=== PATIENT | male | born 1960 | race American Indian/Alaskan Native ===

== ENCOUNTER 2023-11-19 12:48 | Inpatient (IN) | payer SELFPAY ==
[2023-11-19] VITALS (7 sets, daily range): BP systolic 93–120; BP diastolic 55–82
[~2023-11-19] VITALS: Ht 175.3 cm; Wt 73.4 kg
[~2023-11-19 12:48] MED LIST: ALBU90OI INH; HYDACE5 PO; HYDGUAL120 PO; IBUP200 PO; PRED10 PO; RXHYDACE PO; SULTRIDS PO
[2023-11-19] MEDS ORDERED: NS 1,000 ML IV SCH ×5 (13:50→17:20)
[2023-11-19 14:01] LABS: Calcium, Ionized (POC) 0.99 mmol/L (1.10-1.46); Chloride (POC) 84 mmol/L (98-108); Creatinine (POC) 2.4 mg/dL (0.8-1.3); Glucose (ISTAT POC) 99 mg/dL (70-99); Hemoglobin (POC) 11.9 g/dL (13.5-17.5); Potassium (POC) 4.7 mmol/L (3.5-5.5); Sodium (POC) 115 mmol/L (135-148); Total CO2 (POC) 19 mmol/L (21-32)
[2023-11-19 14:09] LABS: Hematocrit 35.6 % (37.0-53.0); Hemoglobin 13.2 g/dL (13.5-17.5); Mean Corpuscular HGB 35.8 pg (26.0-34.0); Mean Corpuscular HGB Conc 37.1 g/dL (31.5-36.5); Mean Corpuscular Volume 97 fL (80-100); Mean Platelet Volume 10.4 fL (9.1-12.4); Platelet Count 125 K/mm3 (150-400); RDW Coefficient Variation 12.5 % (11.7-14.2); RDW Standard Deviation 44.3 fL (35.1-46.3); Red Blood Cell Count 3.69 M/mm3 (4.30-5.90); White Blood Cell Count 23.86 K/mm3 (4.00-11.30)
[2023-11-19] MEDS ORDERED: Cefepime HCl 2,000 MG in NS 100 ML IV ONE (14:10)
[2023-11-19 14:19] LABS: Magnesium, Blood 2.9 mg/dL (1.6-2.4)
[2023-11-19 14:28] LABS: BAND PERCENT MAN 8 % (0-8); BASOPHILS PERCENT MAN 0 % (0-2); EOSINOPHILS PERCENT MAN 0 % (0-6); LYMPHOCYTES ABSOLUTE MAN 0.71 K/mm3 (0.84-5.20); LYMPHOCYTES PERCENT MAN 3 % (21-46); METAMYELOCYTE ABSOLUTE MAN 0.23 K/mm3 (0.00-0.00); METAMYELOCYTE PERCENT MAN 1 % (0-0); MONOCYTES ABSOLUTE MAN 1.19 K/mm3 (0.16-1.47); MONOCYTES PERCENT MAN 5 % (4-13); MYELOCYTE ABSOLUTE MAN 0.23 K/mm3 (0.00-0.00); MYELOCYTE PERCENT MAN 1 % (0-0); NEUTROPHILS ABSOLUTE MAN 21.47 K/mm3 (1.96-9.15); SEG NEUTROPHILS PERCENT MAN 82 % (41-73); TOTAL CELLS COUNTED 100
[2023-11-19 14:36] LABS: Albumin, Blood 2.5 g/dL (3.4-5.0); Albumin/Globulin Ratio 0.7 (0.8-1.8); Bilirubin, Total 1.4 mg/dL (0.1-1.0); Bun/Creatinine Ratio 16.4 (12.0-20.0); Calcium, Blood 8.1 mg/dL (8.5-10.1); Creatinine, Blood 2.01 mg/dL (0.60-1.20); Globulin, Blood 3.8 g/dL (2.2-4.0); Potassium, Blood 4.5 mmol/L (3.5-5.5); Total Protein, Blood 6.3 g/dL (6.4-8.2)
[2023-11-19] MEDS ORDERED: Ondansetron HCl 2 MG / ML 2ML Vial IV PRN ×2 (16:05→19:10)
[2023-11-19] MEDS ORDERED: FentaNYL Citrate 50 MCG/ML 2 ML Injection IV PRN ×4 (16:05→19:10)
[2023-11-19] MEDS ORDERED: Vancomycin HCL 1,750 MG in NS 500 ML IV ONE (16:30)
--- NOTE | 2023-11-19 17:06 | NUR ---
PT TO DAY SURGERY FROM ER. PT ACCOMPANIED BY AND FAMILY. [facility] REVIEWED. PLAN OF CARE DISCUSSED WITH PT AND FAMILY, QUESTIONS ANSWERED. PT TO HAVE Amputation Lower Extremity. LEFT FOOT COVERED IN GUAZE.
[2023-11-19] MEDS ORDERED: Phenylephrine HCl 100 MCG/ML-NS 10MLSYR (1MG/10ML) ONE ×2 (17:21→17:43)
[2023-11-19] MEDS ORDERED: Dexamethasone Sod Phos 10 MG/ML 1ML VIAL ONE (17:21)
[2023-11-19] MEDS ORDERED: Ondansetron HCl 2 MG / ML 2ML Vial ONE (17:21)
[2023-11-19] MEDS ORDERED: Vasopressin 20 UNITS/ML 1ML Vial ONE (17:22)
--- NOTE | 2023-11-19 17:25 | NUR ---
PT TO DAY SURGERY FROM THE ER WITH 18G IV TO LEFT AC AND 20G IV TO RIGHT FA.
[2023-11-19] MEDS ORDERED: Etomidate 2MG / ML 10ML Vial ONE (17:26)
[2023-11-19] MEDS ORDERED: FentaNYL Citrate 50 MCG/ML 2 ML Injection ONE (18:21)
[2023-11-19] MEDS ORDERED: Phenylephrine HCl 10mg/ml 1 ml Vial ONE (18:56)
[2023-11-19] MEDS ORDERED: HYDROmorphone HCl/Pf 1MG SYR IV PRN (19:10)
[2023-11-19] MEDS ORDERED: Metoclopramide HCl 5MG / ML 2ML Vial IV PRN (19:10)
[2023-11-19] MEDS ORDERED: Phenylephrine HCl 20 MG in NS 250 ML IV SCH (19:15)
[2023-11-19] MEDS ORDERED: Sugammadex Sodium 200 MG/2ML SDV (100 MG/ML) ONE (19:17)
[2023-11-19 20:31] LABS: Hematocrit 34.1 % (37.0-53.0); Hemoglobin 12.2 g/dL (13.5-17.5); Mean Corpuscular HGB 35.4 pg (26.0-34.0); Mean Corpuscular HGB Conc 35.8 g/dL (31.5-36.5); Mean Corpuscular Volume 99 fL (80-100); Mean Platelet Volume 10.7 fL (9.1-12.4); Platelet Count 100 K/mm3 (150-400); RDW Coefficient Variation 12.7 % (11.7-14.2); RDW Standard Deviation 45.5 fL (35.1-46.3); Red Blood Cell Count 3.45 M/mm3 (4.30-5.90); White Blood Cell Count 22.73 K/mm3 (4.00-11.30)
[2023-11-19 20:48] LABS: Bun/Creatinine Ratio 20.4 (12.0-20.0); Creatinine, Blood 1.62 mg/dL (0.60-1.20); Potassium, Blood 4.7 mmol/L (3.5-5.5)
[2023-11-19] MEDS ORDERED: Nicotine 21 MG PATCH TOP SCH (21:00)
[2023-11-19] MEDS ORDERED: Cefepime HCl 2,000 MG in NS 100 ML IV SCH (21:00)
[2023-11-19] MEDS ORDERED: Lactobacil 2-S.Thermo-Bifido 1 1 Cap PO SCH (21:00)
[2023-11-19 21:02] LABS: BAND PERCENT MAN 6 % (0-8); BASOPHILS PERCENT MAN 0 % (0-2); EOSINOPHILS PERCENT MAN 0 % (0-6); LYMPHOCYTES ABSOLUTE MAN 0.45 K/mm3 (0.84-5.20); LYMPHOCYTES PERCENT MAN 2 % (21-46); MONOCYTES ABSOLUTE MAN 1.36 K/mm3 (0.16-1.47); MONOCYTES PERCENT MAN 6 % (4-13); NEUTROPHILS ABSOLUTE MAN 20.91 K/mm3 (1.96-9.15); SEG NEUTROPHILS PERCENT MAN 86 % (41-73); TOTAL CELLS COUNTED 100
--- NOTE | 2023-11-19 21:38 | NUR ---
RECEIVED PATIENT FROM OR IN MINIMAL DISTRESS. PATIENT SEMIAWAKE, BUT ABLE TO ANSWER SIMPLE QUESTIONS. PATIENT ROLLING SIDE TO SIDE IN BED AND MEDICATED FOR PAIN. REPORT FROM KATY AND INFORMED THAT PATIENT IS A HEAVY SMOKER/DRINKER. PATIENT WITH WOUND VAC TO LT. LOWER LEG WITH MINIMAL DRAINAGE. FAMILY CALLED TO BEDSIDE TO UPDATE.
--- NOTE | 2023-11-19 23:10 | NUR ---
PATIENT COMPLAINING OF PAIN TO SURGICAL LEG. MEDICATED WITH FENTANYL AND AWAITING RESULTS.
[2023-11-20] VITALS (20 sets, daily range): BP systolic 90–128; BP diastolic 55–82
[2023-11-20] MEDS ORDERED: ChlordiazePOXIDE 25 MG Cap PO PRN ×3 (01:05→18:00)
--- NOTE | 2023-11-20 02:11 | NUR ---
PATIENT BECOMING RESTLESS AND VERY DIAPHORETIC, REMAINING ORIENTED AT PRESENT TIME. PATIENT STATES HE JUST CAN'T BE STILL. DR. ZAVALA SPOKEN TO AND NEW ORDERS NOTED. PATIENT MEDICATED WITH 50 MG OF LIBRIUM PO AND PATIENT NOW LESS DIAPHORETIC AND SLEEPING.
[2023-11-20 03:42] LABS: Hematocrit 34.9 % (37.0-53.0); Hemoglobin 12.2 g/dL (13.5-17.5); Mean Corpuscular HGB 35.3 pg (26.0-34.0); Mean Corpuscular Volume 101 fL (80-100); Mean Platelet Volume 10.8 fL (9.1-12.4); Platelet Count 103 K/mm3 (150-400); RDW Standard Deviation 47.9 fL (35.1-46.3); Red Blood Cell Count 3.46 M/mm3 (4.30-5.90); White Blood Cell Count 20.43 K/mm3 (4.00-11.30)
[2023-11-20 04:03] LABS: Albumin/Globulin Ratio 0.6 (0.8-1.8); Bilirubin, Total 1.6 mg/dL (0.1-1.0); Bun/Creatinine Ratio 24.3 (12.0-20.0); Creatinine, Blood 1.44 mg/dL (0.60-1.20); Globulin, Blood 3.5 g/dL (2.2-4.0); Potassium, Blood 5.4 mmol/L (3.5-5.5); Total Protein, Blood 5.5 g/dL (6.4-8.2)
--- NOTE | 2023-11-20 06:05 | NUR ---
PATIENT MUCH MORE RELAXED AFTER LIBRIUM, SLEEPING BUT AROUSABLE. QUESTIONED NULTIPLE TIMES ABOUT NEEDING TO URINATE. PATIENT STATING THAT HE DID NOT NEED TO GO.
--- NOTE | 2023-11-20 09:00 | NUR ---
AM NOTE... ASSUMED CARE OF PT AT 0700, PT IS A&O TO SELF AND FOLLOWING DIRECTIONS, PT HAS SOME SLIGHT CONFUSION AND NONSENSICAL SPEECH. PT WAS ON 5L NC WHICH WAS TITRATED OFF TO RA WITH O2 SATS> 95% L/S SLIGHTLY COARSE. PT IS IN SR IN THE 90'S BP STABLE WITH MAPS>65. 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 SEROSANGUINOUS FLUID NOTED IN THE DRESSING AND IN THE CANSITER/TUBING. PT HAD 1 EPISODE OF URINARY INCONT, THE WHOLE BED WAS SOAKED WITH URINE, BED BATH AND LINEN CHANGE WERE DONE. PT CURRENTLY DENIES PAIN. WILL CONITNUE TO MONITOR.
--- NOTE | 2023-11-20 09:50 | NUR ---
PT UPDATE.... PT WAS STARTING TO HAVE SLIGHTLY INCREASED CONFUSION, PT STATED THAT "MAGGOTS ARE CRAWLING THROUGH THE CRACKS IN THE WINDOWS AND [place]." PT ALSO STATED THAT HE WAS HAVING NUMBNESS TO HIS HANDS AND WAS VERY ANXIOUS FOR "A COFFEE WITH A BEER CHASER." PT'S CIWA SCORE WAS 11. PT MEDICATED PER EMAR. WILL CONTINUE TO MONITOR.
[2023-11-20] MEDS ORDERED: Ketamine HCl 100 MG / ML 5ML Vial ONE (15:15)
[2023-11-20] MEDS ORDERED: FentaNYL Citrate 50 MCG/ML 2 ML Injection ONE (15:15)
[2023-11-20] MEDS ORDERED: propofoL 20 ML IV ONE (15:15)
[2023-11-20] MEDS ORDERED: Rocuronium Bromide 10 MG/ML 5ML Injection IV ONE (15:17)
[2023-11-20] MEDS ORDERED: Phenylephrine HCl 100 MCG/ML-NS 10MLSYR (1MG/10ML) ONE (15:52)
[2023-11-20] MEDS ORDERED: Vancomycin HCl 1000 MG ADDvantage ONE (15:55)
[2023-11-20] MEDS ORDERED: Vancomycin HCL 1,000 MG in NS 250 ML IV SCH (16:00)
[2023-11-20] MEDS ORDERED: Sugammadex Sodium 200 MG/2ML SDV (100 MG/ML) ONE (16:02)
[2023-11-20] MEDS ORDERED: Lidocaine 2% Jelly Uro-Jet UR ONE (17:15)
[2023-11-20 17:44] LABS: Source, Urine Foley catheter
--- NOTE | 2023-11-20 17:53 | NUR ---
SHIFT SUMMARY.... PT RETURNED FROM THE OR AT 1635, PT HAD AN ORAL AIRWAY IN PLACE BUT WOKE TO STERNAL RUB AND LOUD VOICES CALLING HIS NAME. PT'S LLE HAS A DRESSING IN PLACE THAT IS C/D/I THE WOUND VAC IS NO LONGER PRESENT. PT'S VS STABLE. A BLADDER SCAN WAS DONE D/T THE PT NOT VOIDING SINCE EARLY THIS AM. BLADDER SCAN SHOWED 680MLS, PROVIDER WAS NOTIFIED AND AN ORDER FOR CALDERÓN PLACEMENT WAS GIVEN. A 14FR COUDE WAS PLACE WITHOUT ISSUE AND UA WAS SENT TO THE LAB. PT'S CIWA SCORES THIS SHIFT HAVE BEEN 7-11 AND MDEICATED PER EMAR. CALL LIGHT IN REACH WILL CONTINUE TO MONITOR UNTIL REPORT IS GIVEN TO ONCOMING RN.
[2023-11-20] MEDS ORDERED: LORazepam 2 MG/ML 1ML Injection IV PRN ×2 (18:00)
[2023-11-20 18:08] LABS: Appearance, Urine Hazy (Clear); Bilirubin, Urine Neg (Neg); Blood, Urine 2+ (Neg); Color, Urine Yellow (P-Yellow); Glucose Qualitative, Urine Neg (Neg); Ketones, Urine 1+ (Neg); Leukocyte Esterase, Urine Neg (Neg); Nitrite, Urine Neg (Neg); Protein, Urine 1+ (Neg); Urobilinogen, Urine NORM (Normal)
[2023-11-20 18:24] LABS: Bacteria Rare /hpf; Hyaline Casts 0-2 /lpf (0-2); Red Blood Cells, Urine 0-2 /hpf (0-2); Squamous Epithelial Cells Not Seen /hpf (Few); White Blood Cells, Urine 0-2 /hpf (0-5)
[2023-11-20] MEDS ORDERED: Thiamine HCl 100 MG in NS 50 ML IV SCH (18:30)
[2023-11-20] MEDS ORDERED: Folic Acid 1 MG in NS 50 ML IV SCH (18:30)
--- NOTE | 2023-11-20 19:00 | NUR ---
ASSUMED CARE OF PATIENT AT 1900. REPORT RECEIVED FROM EZ FRANKLIN. PT RESTING IN BED WITH AT BEDSIDE. RECEIVING 2LPM O2 VIA NC WITH SATURATION OF 99%. DRESSING APPLIED TO L LIMB S/P BKA IS C/D/I. VSS AND NO ACUTE NEEDS IDENTIFED AT THIS TIME. SEE SHIFT ASSESSMENT FOR FULL DETAILS.
--- NOTE | 2023-11-21 02:01 | NUR ---
PT TRANSFERRED TO PCU 07 VIA PCU STAFF AT 0156. PT'S CADENCE UPDATED VIA PHONE CALL.
[2023-11-21 02:13] VITALS: BP 116/76
--- NOTE | 2023-11-21 02:22 | NUR ---
ASSUMPTION OF CARE ASSUMED CARE OF PT [id number]. PT IS ASLEEP BUT WILL FOLLOW COMMANDS SUCH ROLLING. PT ON 2L NC. VSS.
[2023-11-21 04:00] VITALS: BP 113/75
[2023-11-21 04:08] LABS: Hematocrit 33.1 % (37.0-53.0); Hemoglobin 11.2 g/dL (13.5-17.5); Mean Corpuscular HGB Conc 33.8 g/dL (31.5-36.5); Mean Corpuscular Volume 103 fL (80-100); Mean Platelet Volume 10.6 fL (9.1-12.4); Platelet Count 107 K/mm3 (150-400); RDW Coefficient Variation 13.3 % (11.7-14.2); RDW Standard Deviation 51.3 fL (35.1-46.3); White Blood Cell Count 18.94 K/mm3 (4.00-11.30)
[2023-11-21 04:35] LABS: Albumin, Blood 1.7 g/dL (3.4-5.0); Albumin/Globulin Ratio 0.5 (0.8-1.8); Bilirubin, Direct 0.4 mg/dL (0.0-0.3); Bilirubin, Indirect 0.3 mg/dL (0.1-0.7); Bilirubin, Total 0.7 mg/dL (0.1-1.0); Bun/Creatinine Ratio 44.4 (12.0-20.0); Calcium, Blood 7.1 mg/dL (8.5-10.1); Creatinine, Blood 1.08 mg/dL (0.60-1.20); Globulin, Blood 3.5 g/dL (2.2-4.0); Potassium, Blood 4.8 mmol/L (3.5-5.5); Total Protein, Blood 5.2 g/dL (6.4-8.2)
--- NOTE | 2023-11-21 05:23 | NUR ---
SHIFT SUMMARY NO NEW COMPLAINTS FROM PT, PT SLEPT T/O THE SHIFT. VSS. PT WAS ON 2L NC DURING TRANSFER BUT IS NOW RA, SATURATIONS ABOVE 95%.
[2023-11-21 05:27] LABS: BAND PERCENT MAN 4 % (0-8); BASOPHILS PERCENT MAN 0 % (0-2); EOSINOPHILS ABSOLUTE MAN 0.18 K/mm3 (0.00-0.68); EOSINOPHILS PERCENT MAN 1 % (0-6); LYMPHOCYTES ABSOLUTE MAN 0.18 K/mm3 (0.84-5.20); LYMPHOCYTES PERCENT MAN 1 % (21-46); METAMYELOCYTE ABSOLUTE MAN 0.18 K/mm3 (0.00-0.00); METAMYELOCYTE PERCENT MAN 1 % (0-0); MONOCYTES ABSOLUTE MAN 0.94 K/mm3 (0.16-1.47); MONOCYTES PERCENT MAN 5 % (4-13); NEUTROPHILS ABSOLUTE MAN 17.42 K/mm3 (1.96-9.15); SEG NEUTROPHILS PERCENT MAN 88 % (41-73); TOTAL CELLS COUNTED 100
[2023-11-21 07:39] VITALS: BP 126/82
[2023-11-21] MEDS ORDERED: Cefepime HCl 2,000 MG in NS 100 ML IV SCH (08:00)
[2023-11-21 08:22] LABS: Vancomycin, Random 20.9 ug/mL
[2023-11-21] MEDS ORDERED: Vancomycin HCL 1,750 MG in NS 500 ML IV SCH (09:00)
[2023-11-21] MEDS ORDERED: Vancomycin HCL 1,000 MG in NS 250 ML IV SCH (09:00)
--- NOTE | 2023-11-21 10:29 | NUR ---
ASSUMED CARE OF PT AT 0700 THIS AM. PT IS EASILY AWOKEN TO NAME, RESPONDS APPROPRIATELY, CALM AND COOPERATIVE WITH CARE. CIWA 0. DRESSING TO L BKA C/D/I. PT DENIES PAIN. SEE DOCUMENTED VS AND ASSESSMENT. AWAITING MD ROUNDS FOR TODAY'S TREATMENT PLAN. PT'S AT BEDSIDE, CALL LIGHT IN REACH, WILL CONTINUE TO MONITOR.
--- NOTE | 2023-11-21 11:26 | NUR ---
CLARIFIED W DR BAKER: NO WOUND VAC PLACEMENT, NO RETURN TO OR TODAY, OK TO EAT. NOTIFIED DR LIMA AND NEW ORDERS RECEIVED.
[2023-11-21 11:57] VITALS: BP 111/74
[2023-11-21] MEDS ORDERED: MetroNIDAZOLE 500MG/NS 100 ml 100 ML IV SCH (16:00)
[2023-11-21 17:00] VITALS: BP 122/64
--- NOTE | 2023-11-21 17:35 | NUR ---
NO ACUTE CHANGES T/O THE SHIFT. PT W LOW APPETITE, ENCOURAGE PO INTAKE. PT IS TAKING IN GOOD AMOUNTS OF WATER PO. DRESSING REMAINED C/D/I, PT OOB FOR THE FIRST TIME SINCE SURGERY WITH P.T. SEE ZORAIDA'S NOTE. PT UP TO CHAIR, AT BEDSIDE, NO COMPLAINTS AT THIS TIME. CHAIR ALARM IN PLACE AND CALL LIGHT IN REACH. WILL CONTINUE TO MONITOR AND GIVE REPORT TO NOC SHIFT RN.
[2023-11-21 20:52] VITALS: BP 120/67
--- NOTE | 2023-11-22 05:20 | NUR ---
SHIFT SUMMARY UNEXPECTED MEDITECH DOWNTIME THIS SHIFT STARTING AROUND 2029. SEE PAPER DOCUMENTATION COMPLETED THIS SHIFT IN PT'S CHART. PT A/O x3. PT ABLE TO ANSWER MOST QUESTIONS APPROPRIATELY. PT ABLE TO FOLLOW COMMANDS, PT MUMBLES WHEN SPEAKING SO DIFFICULT TO UNDERSTAND AT TIMES. PT 2 MAX ASSIST WITH GAITBELT TO STAND AND PIVOT TO CHAIR AND BACK TO BED. PT ON RA, O2 SATS > 90%. CARDIAC MONITORING REFLECTS NSR, HR 80s. DRESSING TO PT'S L BKA C/D/I, PT DENIES PAIN T/O SHIFT. PIV x2, SL. KAITLYNN PATENT AND DRAINING TO GRAVITY.
[2023-11-22 05:37] LABS: BASOPHILS ABSOLUTE AUTO 0.02 K/mm3 (0.00-0.23); BASOPHILS PERCENT AUTO 0 % (0-2); EOSINOPHILS ABSOLUTE AUTO 0.03 K/mm3 (0.00-0.68); EOSINOPHILS PERCENT AUTO 0 % (0-6); Hematocrit 32.7 % (37.0-53.0); IMMATURE GRAN ABSOLUTE AUTO 0.09 K/mm3 (0.00-0.10); IMMATURE GRAN PERCENT AUTO 1 % (0-1); LYMPHOCYTES ABSOLUTE AUTO 0.82 K/mm3 (0.84-5.20); LYMPHOCYTES PERCENT AUTO 8 % (21-46); MONOCYTES ABSOLUTE AUTO 0.84 K/mm3 (0.16-1.47); MONOCYTES PERCENT AUTO 8 % (4-13); Mean Corpuscular HGB 34.9 pg (26.0-34.0); Mean Corpuscular HGB Conc 33.6 g/dL (31.5-36.5); Mean Corpuscular Volume 104 fL (80-100); Mean Platelet Volume 11.2 fL (9.1-12.4); NEUTROPHILS ABSOLUTE AUTO 8.77 K/mm3 (1.96-9.15); NEUTROPHILS PERCENT AUTO 83 % (41-73); Platelet Count 92 K/mm3 (150-400); RDW Coefficient Variation 13.6 % (11.7-14.2); RDW Standard Deviation 51.3 fL (35.1-46.3); Red Blood Cell Count 3.15 M/mm3 (4.30-5.90); White Blood Cell Count 10.57 K/mm3 (4.00-11.30)
[2023-11-22 06:04] LABS: Bun/Creatinine Ratio 43.8 (12.0-20.0); Calcium, Blood 7.3 mg/dL (8.5-10.1); Creatinine, Blood 0.8 mg/dL (0.60-1.20); Potassium, Blood 4.2 mmol/L (3.5-5.5)
[2023-11-22 08:03] VITALS: BP 138/67
[2023-11-22] MEDS ORDERED: Folic Acid 1 MG TAB PO SCH (09:00)
[2023-11-22] MEDS ORDERED: Thiamine HCl 100 MG Tab PO SCH (09:00)
[2023-11-22 11:23] VITALS: BP 122/73
[2023-11-22 15:50] VITALS: BP 136/75
--- NOTE | 2023-11-22 18:17 | NUR ---
SHIFT SUMMARY PT A&Ox4, CALLS AND COMMUNICATES NEEDS APPROPRIATELY. BP STABLE, NO TELE, DENIES CP/PRESSURE. SpO2> 92% RA, DENIES SOB. 2 MAX ASSIST TO STAND PIVOT TO CHAIR. L BKA DRESSING C/D/I. PT DENIED PAIN THROUGHOUT SHIFT. CALDERÓN CATH IN PLACE, PATENT, DRAINING TO GRAVITY. NO OTHER EVENTS, WILL REPORT TO ONCOMING RN.
[2023-11-22 20:59] VITALS: BP 119/72
--- NOTE | 2023-11-22 21:23 | NUR ---
Mcdonald of care Pt resting in hospital [facility], oriented x4, denies pain. Respiratory and cardiac within normal limits. Pt denies GI/ issues, cadena in place draning clear yellow urine. Left BKA site within normal limits, dreassing in place is clean, dry and intact. Call light within reach, pt denies any needs.
--- NOTE | 2023-11-23 02:24 | NUR ---
REPORT TO [facility] RN, PLAN TO TRANSFER TO [facility]
--- NOTE | 2023-11-23 03:13 | NUR ---
PATIENT ARRIVED VIA BED AFTER PHONE REPORT FROM LYDIA. AT 0245 FROM PCU SWAPPED BEDS SO PATIENT DID NOT HAVE TO TRANSFER. ALERT ORIENTED, DENIES NEED FOR PAIN MEDS, GIVEN ICE WATER. CALL NIGHT NEAR.
[2023-11-23 03:26] VITALS: BP 126/81
--- NOTE | 2023-11-23 04:31 | NUR ---
SHIFT SUMMARY PATIENT DID NOT REQUEST ANY PRN MEDS FROM [place]. KAITLYNN PATENT DRAINING.LLE DRESSING CD& I. SL PATENT.
[2023-11-23 05:12] LABS: BASOPHILS ABSOLUTE AUTO 0.03 K/mm3 (0.00-0.23); BASOPHILS PERCENT AUTO 0 % (0-2); EOSINOPHILS ABSOLUTE AUTO 0.06 K/mm3 (0.00-0.68); EOSINOPHILS PERCENT AUTO 1 % (0-6); Hematocrit 32.6 % (37.0-53.0); Hemoglobin 11.3 g/dL (13.5-17.5); IMMATURE GRAN PERCENT AUTO 2 % (0-1); LYMPHOCYTES ABSOLUTE AUTO 0.94 K/mm3 (0.84-5.20); LYMPHOCYTES PERCENT AUTO 8 % (21-46); MONOCYTES PERCENT AUTO 10 % (4-13); Mean Corpuscular HGB 35.2 pg (26.0-34.0); Mean Corpuscular HGB Conc 34.7 g/dL (31.5-36.5); Mean Corpuscular Volume 102 fL (80-100); Mean Platelet Volume 11.9 fL (9.1-12.4); NEUTROPHILS ABSOLUTE AUTO 9.43 K/mm3 (1.96-9.15); NEUTROPHILS PERCENT AUTO 80 % (41-73); Platelet Count 70 K/mm3 (150-400); RDW Coefficient Variation 13.2 % (11.7-14.2); RDW Standard Deviation 49.3 fL (35.1-46.3); Red Blood Cell Count 3.21 M/mm3 (4.30-5.90); White Blood Cell Count 11.86 K/mm3 (4.00-11.30)
[2023-11-23 05:29] LABS: Bun/Creatinine Ratio 39.1 (12.0-20.0); Calcium, Blood 7.6 mg/dL (8.5-10.1); Creatinine, Blood 0.69 mg/dL (0.60-1.20); Potassium, Blood 4.1 mmol/L (3.5-5.5)
[2023-11-23 07:33] VITALS: BP 125/73
[2023-11-23] MEDS ORDERED: Enoxaparin 40 MG/0.4 ML SYR SC SCH (09:00)
[2023-11-23] MEDS ORDERED: NS 250 ML IV PRN (09:40)
[2023-11-23] MEDS ORDERED: Dose Adjust by Pharmacy XX STA (09:47)
--- NOTE | 2023-11-23 12:27 | NUR ---
DOWNTIME PAPER CHARTING DONE FOR ASSESSMENT DUE TO NOT BEING ABLE TO ACCESS INTERVENTIONS IN [employer]. PAPER ASSESSMENT IN CHART.
[2023-11-23] MEDS ORDERED: Vancomycin HCL 1,250 MG in NS 250 ML IV SCH (15:00)
[2023-11-23 16:46] VITALS: BP 121/80
--- NOTE | 2023-11-23 17:11 | NUR ---
SHIFT SUMMARY PT A/O X4; PLEASANT AND COOPERATIVE WITH CARE. CALDERÓN IN PLACE AND DRAINING DARK YELLOW URINE TO GRAVITY. DRESSING CHANGED THIS SHIFT AND IS CDI. PT RECEIVING IV ABX AND HAS BEEN SLEEPING FOR THE MAJORITY OF THE SHIFT. VSS.
[2023-11-23 19:24] VITALS: BP 149/83
[2023-11-24] MEDS ORDERED: Mag Hydrox/Al Hydrox/Simeth 72 ML,Lidocaine 2% Viscous Soln 36 ML,Atropine/Scopalam/Hyo... PO PRN (04:40)
--- NOTE | 2023-11-24 04:50 | NUR ---
SHIFT SUMMARY FLORY WAS ALERT AND FULLY ORIENTED ON ASSESSMENT. PT DENIES PAIN PT AFFECT IS FLAT AND WITHDRAWN. DRESSING TO STUMP IS C/D/I. NO CHANGES TO PT CONDITION. NO ACUTE EVENTS. PT RESTING
[2023-11-24 04:55] VITALS: BP 119/70
[2023-11-24 05:19] LABS: BASOPHILS ABSOLUTE AUTO 0.06 K/mm3 (0.00-0.23); BASOPHILS PERCENT AUTO 1 % (0-2); EOSINOPHILS ABSOLUTE AUTO 0.11 K/mm3 (0.00-0.68); EOSINOPHILS PERCENT AUTO 1 % (0-6); Hematocrit 30.1 % (37.0-53.0); Hemoglobin 10.5 g/dL (13.5-17.5); IMMATURE GRAN ABSOLUTE AUTO 0.34 K/mm3 (0.00-0.10); IMMATURE GRAN PERCENT AUTO 3 % (0-1); LYMPHOCYTES ABSOLUTE AUTO 0.76 K/mm3 (0.84-5.20); LYMPHOCYTES PERCENT AUTO 7 % (21-46); MONOCYTES ABSOLUTE AUTO 1.24 K/mm3 (0.16-1.47); MONOCYTES PERCENT AUTO 11 % (4-13); Mean Corpuscular HGB Conc 34.9 g/dL (31.5-36.5); Mean Corpuscular Volume 100 fL (80-100); Mean Platelet Volume 11.2 fL (9.1-12.4); NEUTROPHILS PERCENT AUTO 77 % (41-73); Platelet Count 85 K/mm3 (150-400); RDW Coefficient Variation 13.1 % (11.7-14.2); RDW Standard Deviation 48.7 fL (35.1-46.3); White Blood Cell Count 11.11 K/mm3 (4.00-11.30)
[2023-11-24 07:53] VITALS: BP 113/69
[2023-11-24 15:36] VITALS: BP 121/71
--- NOTE | 2023-11-24 17:32 | NUR ---
SHIFT SUMMARY PT A&Ox4, CALLS AND COMMUNICATES NEEDS APPROPRIATELY. BP STABLE, NO TELE HR 80's DENIES CP/PRESSURE. SpO2> 92% RA, DENIES SOB. 2 MAX ASSIST TO STAND PIVOT TO CHAIR. L BKA DRESSING CHANGED PER ORDERS, SITE WNL, PT TOLERATED WELL WITH SOME TENDERNESS WHEN APPLYING STUMP SOCK. PT DENIED PAIN THROUGHOUT SHIFT. CALDERÓN CATH REMOVED BY IMCU SPECIALIST AT APPROXIMATELY 1615, PT HAS NOT HAD TO VOID YET AT THIS TIME. NO OTHER EVENTS, WILL REPORT TO ONCOMING RN.
[2023-11-24 19:54] VITALS: BP 110/68
[2023-11-25] MEDS ORDERED: NS 1,000 ML IV SCH (02:30)
[2023-11-25 03:57] VITALS: BP 114/64
[2023-11-25 07:56] VITALS: BP 107/64
--- NOTE | 2023-11-25 08:12 | NUR ---
SUMMARY PT WITH BLADDER SCAN OF [address] MOSS AND ADVISED OF BLADDER SCAN,DISCUSSED SODIUM/POTASSIUM LABS.PT WITH DECREASED PO INTAKE DURING NIGHT.NS WAS STARTED AT 756 ML/HR X 1 LITER PER NEW ORDERS.PT STAYED IN CHAIR TONIGHT PER HIS REQUEST.OUT OF CHAIR TO STAND PER 2 PERSON FOR BSC/VOID THIS AM. USED GAIT BELT AND WALKER,BUT WAS TOO WEAK AFTER BEING UP TO TRANSFER WITH 2 PERSONS SAFELY AND REQUIRED 3 PEOPLE.PT FRUSTRATED BY LIMITATIONS DUE MERON AMPUTATION. ENC AND SUPPORT GIVEN.
--- NOTE | 2023-11-25 11:51 | NUR ---
ASSUMING CARE OF PT FROM LUCRECIA Perkins RN
[2023-11-25] MEDS ORDERED: Cephalexin Monohydrate 500 MG Cap PO SCH (14:00)
[2023-11-25] MEDS ORDERED: MetroNIDAZOLE 500 MG Tab PO SCH (14:00)
--- NOTE | 2023-11-25 14:29 | NUR ---
PENICILLIN ALLERGY PT REPORTED ALLERGY FROM "YEARS AGO". PT COULD NOT REPORT REACTION. VERFIED W/PHARMACY OKAY TO ADMINISTER KEFLEX.
[2023-11-25 17:09] VITALS: BP 145/85
--- NOTE | 2023-11-25 18:44 | NUR ---
NO ACUTE CHANGES, SLEEP THROUGH OUT THE DAY, YAZAN HAS ONLY ATE A [facility] TODAY, BKA LEFT DRESSING CHANGED, 2 PERSON ASSIST, SATS RA, MAKES NEEDS KNOWN, CALL LIGHT WITH IN REACH
[2023-11-25 21:26] VITALS: BP 110/67
[2023-11-26 04:38] VITALS: BP 116/69
--- NOTE | 2023-11-26 05:44 | NUR ---
SHIFT SUMMARY PT A&OX3 AND ANSWERS QUESTIONS APPROPRIATELY. PT RECEIVED HS MEDICATIONS. PT REPOSITIONED Q2HRS. VSS, NO COMPLAINTS OF CP/PRESSURE OR SOB. PT SPENT MOST OF SHIFT WITH EYES CLOSED AND RESPIRATIONS EVEN AND UNLABORED. NO ACUTE EVENTS AT THIS TIME. PT LEFT IN A POSITION OF SAFETY WITH PROPER FALL PRECAUTIONS IN PLACE AND CALL LIGHT IN REACH.
[2023-11-26 08:16] VITALS: BP 115/68
[2023-11-26] MEDS ORDERED: CEPH500 PO (13:27)
[2023-11-26] MEDS ORDERED: METR500 PO (13:28)
[2023-11-26] MEDS ORDERED: Nicoderm Cq1 EAC1 TOP (13:28)
[2023-11-26] MEDS ORDERED: VISBIOME 112.51 EACH PO (13:29)
[2023-11-26] MEDS ORDERED: APHEN325 M1 PO (13:30)
--- NOTE | 2023-11-26 16:53 | NUR ---
DICUSSED DISCHARGE INSTRUCTIONS AND EDUCATION WITH PATIENT AND COPY PROVIDED. RX MEDICATIONS FAXED TO [facility]. PATIENT DENIES ANY FURTHER QUESTIONS OR CONCERNS. WILL DC WHEN ARRIVES.
[2023-11-26 20:26] VITALS: BP 107/73
[2023-11-27 02:39] VITALS: BP 108/71
--- NOTE | 2023-11-27 05:44 | NUR ---
SHIFT SUMMARY PT A&OX3-4 AND ANSWERS QUESTIONS APPROPRIATELY. PT TO BE D.C YESTERDAY, BUT HIS RIDE DID NOT SHOW UP. CONTACTED SPOUSE, SHE VERBALIZED NOT BEING ABLE TO PICK HIM UP TODAY, BUT WOULD IN THE AFTERNOON OF 11/27/23. VSS, NO COMPLAINTS OF CP/PRESSURE OR SOB. PT SPENT MOST OF SHIFT WITH EYES CLOSED AND RESPIRATIONS EVEN AND UNLABORED. NO ACUTE EVENTS AT THIS TIME. PT INDEPENDENTLY REPOSITIONED DURING THE NIGHT. FALL PRECAUTIONS IN PLACE AND CALL LIGHT IN REACH.
[2023-11-27 07:44] VITALS: BP 116/72
[2023-11-27] MEDS ORDERED: Bisacodyl 10 MG Supp PR PRN (11:40)
[2023-11-27] MEDS ORDERED: Magnesium Hydroxide Conc 10 ML UDC PO PRN (11:40)
--- NOTE | 2023-11-27 13:45 | NUR ---
PATIENT D/C'D TO HOME WITH . DC INSTRUCTIONS AND EDUCATION DISCUSSED WITH PATIENT AND COPY PROVIDED. INSTRUCTED ON DRESSING CHANGE. PATIENT IS TO FOLLOW UP WITH DR BAKER AND ESTABLISH A PCP. PATIENT DENIES ANY FURTHER QUESTIONS OR CONCERNS.
[2023-11-27] MEDS ORDERED: Sennosides 8.6 MG Tab PO SCH (21:00)
[2023-11-27] MEDS ORDERED: Docusate Sodium 100 MG Cap PO SCH (21:00)
== END 2023-11-27 13:45 | disposition home or self-care (01) | DRG 853 ==
LOC: ER 12:48 → ICUE 16:03 → PCU 11-21 01:58 → MEDS 11-23 02:43
PROVIDERS: Emergency Medicine; Family Medicine; Internal Medicine; Orthopaedic Surgery Sports Medicine; Physician Assistant; ADMIT Internal Medicine
PROC: 0Y6J0Z2 Detachment at Left Lower Leg, Mid, Open Approach (ICD-10-PCS; 2023-11-19)
PROC: 3E03329 Introduction of Other Anti-infective into Peripheral Vein, Percutaneous Approach (ICD-10-PCS; 2023-11-19)
PROC: 0T9B70Z Drainage of Bladder with Drainage Device, Via Natural or Artificial Opening (ICD-10-PCS; 2023-11-20)
PROC: 0JBP0ZZ Excision of Left Lower Leg Subcutaneous Tissue and Fascia, Open Approach (ICD-10-PCS; principal; 2023-11-20 15:00)
DX: A41.9 Sepsis, unspecified organism (principal); A48.0 Gas gangrene; R65.21 Severe sepsis with septic shock; N17.9 Acute kidney failure, unspecified; M86.8X7 Other osteomyelitis, ankle and foot; E87.1 Hypo-osmolality and hyponatremia; F10.239 Alcohol dependence with withdrawal, unspecified; L03.116 Cellulitis of left lower limb; L02.612 Cutaneous abscess of left foot; I70.262 Atherosclerosis of native arteries of extremities with gangrene, left leg; Z89.512 Acquired absence of left leg below knee; D69.6 Thrombocytopenia, unspecified; F17.210 Nicotine dependence, cigarettes, uncomplicated; B96.6 Bacteroides fragilis [B. fragilis] as the cause of diseases classified elsewhere; B95.5 Unspecified streptococcus as the cause of diseases classified elsewhere; Z88.0 Allergy status to penicillin; R74.01 Elevation of levels of liver transaminase levels; R54 Age-related physical debility; Y90.0 Blood alcohol level of less than 20 mg/100 ml; Z98.52 Vasectomy status
CPT/HCPCS: 36415; 51702; 73630; 73700; 80047; 80048; 80053; 80202; 81001; 82140; 82248; 82947; 83605; 83735; 85014; 85025; 85027; 85651; 86140; 87040; 87070; 87075; 87076; 87185; 87205; 88305; 88307; 93005; 93010; 93306; 94760; 94762; 96361-59; 96365-59; 97110; 97161; 97166; 97530; 97535; 99285-25; A9270; J0692; J1100; J1650; J2060; J2371; J2405; J2704; J3010; J3370; J3411; J7030; J7040; J7050

== ENCOUNTER 2024-01-08 04:20 | Day surgery (SDC) | payer OTHER ==
[~2024-01-08 04:20] MED LIST changes: +APHEN325 M1 PO; +CEPH500 PO; +METR500 PO; +Nicoderm Cq1 EAC1 TOP; +VISBIOME 112.51 EACH PO
== END 2024-01-08 22:42 | disposition home or self-care (01) ==
LOC: WOUND 04:20
DX: L97.512 Non-pressure chronic ulcer of other part of right foot with fat layer exposed (principal); F17.210 Nicotine dependence, cigarettes, uncomplicated; Z88.0 Allergy status to penicillin
CPT/HCPCS: G0463

== ENCOUNTER 2024-01-30 02:52 | Day surgery (SDC) | payer OTHER | END 2024-01-30 23:00 | disposition home or self-care (01) | LOC: WOUND 02:52 | DX: L97.512 Non-pressure chronic ulcer of other part of right foot with fat layer exposed (principal); Z72.0 Tobacco use | CPT/HCPCS: G0463 ==

== ENCOUNTER 2024-02-05 02:34 | Day surgery (SDC) | payer OTHER | END 2024-02-05 23:12 | disposition home or self-care (01) | LOC: WOUND 02:34 | DX: L97.512 Non-pressure chronic ulcer of other part of right foot with fat layer exposed (principal); Z72.0 Tobacco use | CPT/HCPCS: G0463 ==

== ENCOUNTER 2024-02-12 04:47 | Day surgery (SDC) | payer OTHER | END 2024-02-12 22:52 | disposition home or self-care (01) | LOC: WOUND 04:47 | DX: L97.512 Non-pressure chronic ulcer of other part of right foot with fat layer exposed (principal); G62.9 Polyneuropathy, unspecified; Z72.0 Tobacco use | CPT/HCPCS: G0463 ==

== ENCOUNTER 2024-02-19 02:08 | Day surgery (SDC) | payer OTHER | END 2024-02-19 23:31 | disposition home or self-care (01) | LOC: WOUND 02:08 | DX: L97.512 Non-pressure chronic ulcer of other part of right foot with fat layer exposed (principal); Z72.0 Tobacco use ==

== ENCOUNTER 2024-02-26 01:04 | Day surgery (SDC) | payer OTHER | END 2024-02-26 23:08 | disposition home or self-care (01) | LOC: WOUND 01:04 | DX: L97.512 Non-pressure chronic ulcer of other part of right foot with fat layer exposed (principal); G62.9 Polyneuropathy, unspecified; Z72.0 Tobacco use | CPT/HCPCS: G0463 ==

== ENCOUNTER 2024-03-04 03:37 | Day surgery (SDC) | payer OTHER | END 2024-03-04 23:37 | disposition home or self-care (01) | LOC: WOUND 03:37 | DX: L97.512 Non-pressure chronic ulcer of other part of right foot with fat layer exposed (principal); Z72.0 Tobacco use; G90.09 Other idiopathic peripheral autonomic neuropathy | CPT/HCPCS: G0463 ==

== ENCOUNTER 2024-03-11 02:56 | Day surgery (SDC) | payer OTHER | END 2024-03-11 23:00 | disposition home or self-care (01) | LOC: WOUND 02:56 | DX: L97.512 Non-pressure chronic ulcer of other part of right foot with fat layer exposed (principal); G90.09 Other idiopathic peripheral autonomic neuropathy; Z72.0 Tobacco use | CPT/HCPCS: G0463 ==

== ENCOUNTER 2024-05-14 02:01 | Inpatient (IN) | payer OTHER ==
[2024-05-14] VITALS (39 sets, daily range): BP systolic 91–146; BP diastolic 58–109
[~2024-05-14] VITALS: Ht 175.3 cm; Wt 82.0 kg
[2024-05-14] MEDS ORDERED: Ketorolac Tromethamine 30mg Vial IV ONE (03:15)
[2024-05-14] MEDS ORDERED: NS 1,000 ML IV SCH (03:15)
[2024-05-14 03:16] LABS: BASOPHILS ABSOLUTE AUTO 0.06 K/mm3 (0.00-0.23); BASOPHILS PERCENT AUTO 1 % (0-2); EOSINOPHILS ABSOLUTE AUTO 0.03 K/mm3 (0.00-0.68); EOSINOPHILS PERCENT AUTO 0 % (0-6); Hematocrit 40.5 % (37.0-53.0); Hemoglobin 14.5 g/dL (13.5-17.5); IMMATURE GRAN ABSOLUTE AUTO 0.04 K/mm3 (0.00-0.10); IMMATURE GRAN PERCENT AUTO 0 % (0-1); LYMPHOCYTES ABSOLUTE AUTO 0.56 K/mm3 (0.84-5.20); LYMPHOCYTES PERCENT AUTO 5 % (21-46); MONOCYTES ABSOLUTE AUTO 0.81 K/mm3 (0.16-1.47); MONOCYTES PERCENT AUTO 8 % (4-13); Mean Corpuscular HGB Conc 35.8 g/dL (31.5-36.5); Mean Corpuscular Volume 95 fL (80-100); NEUTROPHILS ABSOLUTE AUTO 8.96 K/mm3 (1.96-9.15); NEUTROPHILS PERCENT AUTO 86 % (41-73); Platelet Count 208 K/mm3 (150-400); RDW Coefficient Variation 14.8 % (11.7-14.2); RDW Standard Deviation 51.9 fL (35.1-46.3); Red Blood Cell Count 4.26 M/mm3 (4.30-5.90); White Blood Cell Count 10.46 K/mm3 (4.00-11.30)
[2024-05-14 03:44] LABS: Albumin, Blood 3.3 g/dL (3.4-5.0); Albumin/Globulin Ratio 0.9 (0.8-1.8); Bilirubin, Total 0.7 mg/dL (0.1-1.0); Bun/Creatinine Ratio 10.5 (12.0-20.0); Calcium, Blood 8.9 mg/dL (8.5-10.1); Creatinine, Blood 0.96 mg/dL (0.60-1.20); Globulin, Blood 3.6 g/dL (2.2-4.0); Potassium, Blood 4.8 mmol/L (3.5-5.5); Total Protein, Blood 6.9 g/dL (6.4-8.2)
[2024-05-14] MEDS ORDERED: FentaNYL Citrate 50 MCG/ML 2 ML Injection IV ONE (04:05)
[2024-05-14] MEDS ORDERED: CefTRIAXone Sodium 1,000 MG in NS 50 ML IV ONE (06:10)
[2024-05-14] MEDS ORDERED: Ondansetron HCl 2 MG / ML 2ML Vial IV ONE (06:20)
[2024-05-14] MEDS ORDERED: Morphine Sulfate 4 MG/1 ML Injection IV ONE (06:20)
[2024-05-14] MEDS ORDERED: Ondansetron 4 MG TAB PO PRN (08:55)
[2024-05-14] MEDS ORDERED: Lactobacil 2-S.Thermo-Bifido 1 1 Cap PO SCH (09:00)
[2024-05-14] MEDS ORDERED: FLU VACC TS2024-25(6MOS UP)/PF 45 MCG/0.5 ML SYRINGE IM SCH (09:00)
[2024-05-14] MEDS ORDERED: FentaNYL Citrate 50 MCG/ML 2 ML Injection IV PRN ×2 (09:10→15:50)
[2024-05-14] MEDS ORDERED: HYDROmorphone HCl/Pf 1MG SYR IV ONE (09:10)
[2024-05-14] MEDS ORDERED: Meropenem 1,000 MG in NS 100 ML IV SCH (09:13)
[2024-05-14] MEDS ORDERED: HYDROmorphone HCl/Pf 1MG SYR IV PRN (09:30)
[2024-05-14] MEDS ORDERED: Pantoprazole Sodium 40 MG Injection IV SCH (10:00)
[2024-05-14 10:20] LABS: International Normalized Ratio 0.95; Prothrombin Time Results 10.2 Sec (9.7-11.5)
[2024-05-14 10:26] LABS: Source, Urine Clean Catch
[2024-05-14 10:33] LABS: Bilirubin, Urine Neg (Neg); Blood, Urine 3+ (Neg); Glucose Qualitative, Urine Neg (Neg); Ketones, Urine Neg (Neg); Leukocyte Esterase, Urine 1+ (Neg); Nitrite, Urine Neg (Neg); Protein, Urine 3+ (Neg); Urobilinogen, Urine NORM (Normal)
[2024-05-14 11:09] LABS: Appearance, Urine Hazy (Clear); Bacteria Rare /hpf; Color, Urine Yellow (P-Yellow); Squamous Epithelial Cells Few /hpf (Few); White Blood Cells, Urine 0-2 /hpf (0-5)
[2024-05-14] MEDS ORDERED: Lactated Ringer's 1,000 ML IV SCH ×3 (11:15→15:50)
[2024-05-14] MEDS ORDERED: Rocuronium Bromide 10 MG/ML 5ML Injection IV ONE (12:22)
[2024-05-14] MEDS ORDERED: Ondansetron HCl 2 MG / ML 2ML Vial ONE (12:22)
[2024-05-14] MEDS ORDERED: propofoL 0 ML IV ONE (12:22)
[2024-05-14] MEDS ORDERED: Dexamethasone Sod Phos 10 MG/ML 1ML VIAL ONE (12:22)
[2024-05-14] MEDS ORDERED: FentaNYL Citrate 50 MCG/ML 2 ML Injection ONE ×2 (12:22→14:57)
[2024-05-14] MEDS ORDERED: Sugammadex Sodium 200 MG/2ML SDV (100 MG/ML) ONE (12:22)
[2024-05-14] MEDS ORDERED: Midazolam HCl 1MG / ML 2ML Vial ONE (12:22)
[2024-05-14] MEDS ORDERED: Bupivacaine 0.5% HCl 5 MG/ML 30MLVIAL ONE (13:05)
[2024-05-14] MEDS ORDERED: Lactated Ringer's 1,000 ML IV ONE (13:18)
[2024-05-14] MEDS ORDERED: Etomidate 2MG / ML 10ML Vial ONE (13:26)
--- NOTE | 2024-05-14 13:34 | NUR ---
CALLED EMERGENCY ROOM RN TO GET REPORT ON PATIENT ARRIVING AFTER SURGERY. PATIENT IS CURRENTLY IN SURGERY.
--- NOTE | 2024-05-14 14:26 | NUR ---
05/14/24 1426 Beatris Maldonado PT ON SCHEDULED ANTIBIOTICS
--- NOTE | 2024-05-14 16:33 | NUR ---
80ML SEROSANGUINEOUS DRAINAGE EMPTIED FROM CHELSEA AT 1620; SURGEON AWARE & STS EXPECTED, NO CONCERN. LEE DRESSING CDI, BATTERY RUNNING. NG IN PLACE, PER ORDERS, CALDERÓN CATHETER IN & DRAINING APPROPRIATELY.
--- NOTE | 2024-05-14 17:47 | NUR ---
PATIENT ARRIVES TO UNIT VIA BED AND WAS TALKING WITH FAMILY AND THIS RN. PATIENT AROUSABLE BUT IS STILL SLEEPY. IS ALERT AND ORIENTED X4 AND WAS ABLE TO ANSWER ALL ORIENTATION QUESTIONS. CONNECTED TO LOW INTERMITTEN SUCTION NASAL GASTRIC TUBE. VITAL SIGNS TAKEN AND PATIENT STABLE. WAS PLACED ON 2 LITERS VIA NASAL CANNULA FOR LOW SATURATIONS IN THE 80'S. PATIENT DRAIN SITE CLEAN INTACT AND DRY. HAS RAFAEL TUBE THAT HAS PINK TINGED DRAININAGE. CALDERÓN IS PLACED THAT IS DRAINING TO SECURE AND STERILE DEVICE BELOW BLADDER. FAMILY AT BEDSIDE AND WERE ABLE TO GIVE A FULL HISTORY AND REPORT PATIENT WAS STILL SLEEPY.
--- NOTE | 2024-05-14 18:07 | NUR ---
SHIFT SUMMARY: PATIENT IS ALERT AND ORIENTED X4 AND COOPERATIVE WITH CARE. IS ABLE TO ANSWER ALL ORIENTATION QUESTIONS BUT IS SLEEPY/AROUSABLE AFTER SURGERY. IS SATTING >92% ON 2 LITERS VIA NASAL CANNULA. ON TELE SHOWING SINUS TACH WITH RATE 110. FAMILY AT BEDSIDE AND WAS ABLE TO GIVE ME MORE BACK STORY AND HISTORY. PATIENT HAS LEFT BKA AND DENIES ANY PAIN. NO CHEST PAIN/PRESSURE OR SHORT OF BREATH. PATIENT HAS A RAFAEL DRAIN AND CALDERÓN THAT ARE BOTH DRAINING PROPERLY. SURGICAL SITE IS CLEAN DRY AND INTACT. WILL CONTINUE TO MONITOR UNITL HYDRAULIC RUBBISH COMPACTOR MECHANIC RN TAKES OVER CARE.
--- NOTE | 2024-05-14 19:59 | NUR ---
ASSESSMENT/ASSUMED CARE PT LYING IN BED WITH EYES CLOSED. OPENS EYES TO VERBAL STIMLI. FOLLOWS INSTRUCTIONS SLOWLY. BACK TO SLEEP QUICKLY WHEN UNDISTURBED. WHEN ASKED ABOUT PAIN PT MUMBLES "NO". LUNGS CLEAR BUT DECREASED. RESP EVEN AND NONLABORED ON 2 LITERS VIA NC. HEART RATE SINUS TACK IN THE 100-110'S. BP STABLE. NO EDEMA NOTED. BT+ HYPOACTIVE. ABD TENDER TO TOUCH. MIDLINE INCISION WITH LEE DRSG INTACT. RIGHT LOWER QUAD WITH RAFAEL/CHELSEA DRAIN WITH SEROUSANGIOUS DRAINAGE. SITE CLEAR. NG TO LEFT NARE AT 70 CM TO LIS. RETAPED NG TUBE. CALDERÓN CATH PATENT DRAINING YELLOW URINE. RED AREA TO HEAD OF PENIS. LEFT BKA WELL HEALED. REPOSITIONED.
[2024-05-15] VITALS (11 sets, daily range): BP systolic 103–134; BP diastolic 73–84
[2024-05-15 04:36] LABS: Hematocrit 38.1 % (37.0-53.0); Hemoglobin 12.7 g/dL (13.5-17.5); Mean Corpuscular HGB 33.8 pg (26.0-34.0); Mean Corpuscular HGB Conc 33.3 g/dL (31.5-36.5); RDW Coefficient Variation 15.9 % (11.7-14.2); RDW Standard Deviation 59.4 fL (35.1-46.3); Red Blood Cell Count 3.76 M/mm3 (4.30-5.90); White Blood Cell Count 14.54 K/mm3 (4.00-11.30)
[2024-05-15 04:44] LABS: Mean Corpuscular Volume 101 fL (80-100); Mean Platelet Volume 9.4 fL (9.1-12.4); Platelet Count 168 K/mm3 (150-400)
[2024-05-15 04:57] LABS: BAND PERCENT MAN 32 % (0-8); BASOPHILS PERCENT MAN 0 % (0-2); EOSINOPHILS PERCENT MAN 0 % (0-6); LYMPHOCYTES ABSOLUTE MAN 0.72 K/mm3 (0.84-5.20); LYMPHOCYTES PERCENT MAN 5 % (21-46); METAMYELOCYTE ABSOLUTE MAN 0.29 K/mm3 (0.00-0.00); METAMYELOCYTE PERCENT MAN 2 % (0-0); MONOCYTES ABSOLUTE MAN 0.14 K/mm3 (0.16-1.47); MONOCYTES PERCENT MAN 1 % (4-13); NEUTROPHILS ABSOLUTE MAN 13.37 K/mm3 (1.96-9.15); SEG NEUTROPHILS PERCENT MAN 60 % (41-73); TOTAL CELLS COUNTED 100
[2024-05-15 05:06] LABS: Albumin, Blood 2.2 g/dL (3.4-5.0); Albumin/Globulin Ratio 0.7 (0.8-1.8); Bilirubin, Total 0.3 mg/dL (0.1-1.0); Bun/Creatinine Ratio 15.4 (12.0-20.0); Calcium, Blood 8.2 mg/dL (8.5-10.1); Creatinine, Blood 1.17 mg/dL (0.60-1.20); Globulin, Blood 3.3 g/dL (2.2-4.0); Magnesium, Blood 1.9 mg/dL (1.6-2.4); Phosphorus, Blood 4.1 mg/dL (2.5-4.9); Potassium, Blood 5.8 mmol/L (3.5-5.5); Total Protein, Blood 5.5 g/dL (6.4-8.2)
--- NOTE | 2024-05-15 05:57 | NUR ---
CALL TO DR MOSS REGARDING AM LABS AND ELEVATED POTASSIUM OF 5.8. HE WILL REVIEW LABS
[2024-05-15] MEDS ORDERED: Insulin Regular 100 Unit/ML 1ML Dose IV ONE (06:09)
[2024-05-15] MEDS ORDERED: Sodium Bicarb 8.4% 1 MEQ/ML 50 ML Vial IV ONE (06:11)
[2024-05-15] MEDS ORDERED: Dextrose 50% 50 ML Syringe IV ONE (06:12)
[2024-05-15] MEDS ORDERED: CALCIUM GLUC IN NACL, ISO-OSM 50 ML IV ONE (06:20)
--- NOTE | 2024-05-15 06:31 | NUR ---
SHIFT SUMMARY PT RESTING QUIETLY. TURNED Q2HRS. MED WITH 5 UNITS REGULAR INSULIN IV, D50 AND NA BICARB FOR ABNORMAL LABS. AWAITING SCOUT GLUCONATE FROM PHARMACY. CONT LR AT 125 ML/HR. PT MORE AWAKE THIS MORNING AND TALKING WITH STAFF. VSS. MID LINE ABD LEE DRSG INTACT. RAFAEL/CHELSEA DRAIN EMPIED DURING THE NIGHT. URINE SENT TO LAB PER ORDER. REPORT TO ON COMING NURSE
[2024-05-15] MEDS ORDERED: NS 1,000 ML IV SCH (07:50)
[2024-05-15] MEDS ORDERED: LORazepam 2 MG/ML 1ML Injection IV PRN ×3 (07:55→08:00)
[2024-05-15] MEDS ORDERED: ChlordiazePOXIDE 25 MG Cap PO PRN ×2 (07:55)
--- NOTE | 2024-05-15 08:45 | NUR ---
AM NOTE: PATIENT WAKES TO VOICE/TOUCH. ALERT AND ORIENTED. VOICE MUMBLED. HARD OF HEARING. STATES HE IS GRUMPY AND JUST WANTS TO SLEEP. DENIES PAIN. ABLE TO MOVE ALL EXTREMITIES. USES WHEELCHAIR AT BASELINE. LEFT BKA. DENIES NUMBNESS/TINGLING. PATIENT ABLE TO HELP REPOSITION IN BED. CIWA SCORING 1-3 TELE SHOWING SINUS TACH WITH HR 100-110'S. DENIES CHEST PAIN/PRESSURE/PALPITATIONS. SBP 120'S. IV FLUIDS INFUSING PER EMAR. NO EDEMA NOTED. IV ABX INFUSED. ON ROOM AIR SATING 95%. DENIES SOB/COUGH. INSPIRATORY AND EXPIRATORY WHEEZING HEARD IN BILATERAL UPPER LOBES. DENIES USING INHALERS AT HOME. OCCASIONAL DRY COUGH. SUCTION AT BEDSIDE. ORAL CARE. PATIENT NPO. NG TUBE TO LIS WITH MINIMAL GREEN OUTPUT. SECURED AT 70 WITH TAPE. PATIENT COMPLAINING ABOUT NG TUBE DISCOMFORT. MIDLINE LEE DRESSING C/D/I. RLQ RAFAEL DRAIN WITH SEROSANG OUTPUT. PATIENT DENIES ABDOMINAL PAIN. BOWEL TONES PRESENT THROUGHOUT. DENIES PASSING ANY GAS OR BOWEL MOVEMENT. DENIES NAUSEA. CALDERÓN CATH IN PLACE DRAINING CLEAR/YELLOW URINE TO GRAVITY. HEAD OF PENIS RED, SEE CHART PHOTO. SKIN OVERALL SLIGHTLY AYLIN. SCATTERED BRUISING. LEFT BKA WITH HEALED INCISION.
[2024-05-15] MEDS ORDERED: Thiamine HCl 100 MG in NS 50 ML IV SCH (09:00)
[2024-05-15] MEDS ORDERED: Folic Acid 1 MG in NS 50 ML IV SCH (09:00)
[2024-05-15] MEDS ORDERED: Enoxaparin 40 MG/0.4 ML SYR SC SCH ×2 (09:00)
[2024-05-15 10:42] LABS: Albumin, Blood 1.5 g/dL (3.4-5.0); Anion Gap 8 mmol/L (3-11); Blood Urea Nitrogen 20 mg/dL (8-24); CO2, Blood 23 mmol/L (21-32); Calcium, Blood 8.6 mg/dL (8.5-10.1); Chloride, Blood 109 mmol/L (98-108); Creatinine, Blood 1.11 mg/dL (0.60-1.20); Glomerular Filtration Rate 74 (60-); Glucose, Blood 113 mg/dL (70-99); Magnesium, Blood 2.1 mg/dL (1.6-2.4); Phosphorus, Blood 3.9 mg/dL (2.5-4.9); Potassium, Blood 5.3 mmol/L (3.5-5.5); Sodium, Blood 135 mmol/L (136-145)
--- NOTE | 2024-05-15 13:01 | NUR ---
CADENCE AT BEDSIDE. DR. CEDEÑO TO BEDSIDE AND UPDATED . CIWA SCORE 1 THIS AFTERNOON. PATIENT CONTINUES TO DENY PAIN. REFUSING BED BATH. IV FLUIDS CONTINUE TO INFUSE. NG TO LIS. VITAL SIGNS STABLE.
--- NOTE | 2024-05-15 18:22 | NUR ---
SHIFT SUMMARY: NO ACUTE CHANGES. PATIENT SLEEPY THROUGHOUT SHIFT. DENIES PAIN WHEN LAYING IN BED. BED BATH GIVEN. NG TUBE CONTINUES TO LIS WITH MINIMAL GREEN OUTPUT. MIDLINE LEE DRESSING C/D/I. RLQ RAFAEL DRAIN REMAINS IN PLACE WITH SEROSANG OUTPUT. IV FLUIDS INFUSING. TELE SHOWING SR/ST WITH HR 90-110'S. ON ROOM AIR. CALDERÓN CATH REMAINS IN PLACE. CIWA SCORING 1-3. IV ABX INFUSED. CALL LIGHT IN REACH. DENIES NEEDS AT THIS TIME.
--- NOTE | 2024-05-15 21:13 | NUR ---
ASSUMED CARE OF THIS PATIENT AT 1900. PATIENT IS A+O X4, ABLE TO COMMUNICATE EFFECTIVLY. EXPRESSED WANTED HIS NG TUBE REMOVED. MD ROUNDED ON THIS PATIENT, IMAGINING TO BE OBTAINED TOMORROW WITH CONTRAST THROUGH THE NG TUBE, POSSIBLE REMOVAL OF NG TUBE BASED ON RESULTS. NS INFUSING PER EMAR ORDERS. PATIENT DENIES PAIN AT THIS TIME. CALL LIGHT IN REACH.
--- NOTE | 2024-05-16 01:55 | NUR ---
NURSE NOTE/ SHIFT SUMMARY PATIENT IS A+O X4, COOPERATIVE WITH CARE BUT ASKED TO BE "BOTHERED" LITTLE POSSIBLE. DENIES PAIN WITH LAYING IN BED, HYPOACTIVE BOWEL TONES. NG TUBE CONTINUES TO LIS DRAINING GREEN COLORED OUTPUT. RAFAEL DRAIN TO RLQ DRAINING SEROSANG OUTPUT. MIDLINE LEE DRESSING C/D/I. IV FLUIDS INFUSING, IV ABX INFUSED. CALDERÓN CATH IN PLACE DRAINING TO GRAVITY. CIWA SCORING 1-3. SLEEPING AT THIS TIME. CALL LIGHT IN REACH.
[2024-05-16 04:13] VITALS: BP 150/93
[2024-05-16 04:26] LABS: Hematocrit 34.6 % (37.0-53.0); Hemoglobin 11.9 g/dL (13.5-17.5); Mean Corpuscular HGB 34.1 pg (26.0-34.0); Mean Corpuscular HGB Conc 34.4 g/dL (31.5-36.5); Mean Corpuscular Volume 99 fL (80-100); Mean Platelet Volume 9.6 fL (9.1-12.4); Platelet Count 180 K/mm3 (150-400); RDW Coefficient Variation 16.5 % (11.7-14.2); RDW Standard Deviation 59.8 fL (35.1-46.3); Red Blood Cell Count 3.49 M/mm3 (4.30-5.90); White Blood Cell Count 18.98 K/mm3 (4.00-11.30)
--- NOTE | 2024-05-16 04:44 | NUR ---
THIS RN ASSUMED PRIMARY CARE OF PATIENT FROM [facility] AT 0315. VSS. SEE PREVIOUS NOTES FROM GIO RN. NO CHANGES SINCE SHIFT SUMMARY NOTE. PT CONTINUES TO PREFER TO BE LEFT ALONE AND ALLOWED TO SLEEP. REPOSTIIONING Q2HRS. NO CHANGES TO GI SINCE ASSESSMENT. CIWA 1-3 AT THIS TIME. DENIES PAIN. BED IN LOWEST POSITION AND CALL LIGHT WITHIN REACH. THIS RN [facility].
[2024-05-16 05:13] LABS: BAND PERCENT MAN 15 % (0-8); BASOPHILS PERCENT MAN 0 % (0-2); EOSINOPHILS PERCENT MAN 0 % (0-6); LYMPHOCYTES ABSOLUTE MAN 0.56 K/mm3 (0.84-5.20); LYMPHOCYTES PERCENT MAN 3 % (21-46); MONOCYTES ABSOLUTE MAN 1.32 K/mm3 (0.16-1.47); MONOCYTES PERCENT MAN 7 % (4-13); NEUTROPHILS ABSOLUTE MAN 17.08 K/mm3 (1.96-9.15); SEG NEUTROPHILS PERCENT MAN 75 % (41-73); TOTAL CELLS COUNTED 100
[2024-05-16 05:15] LABS: Albumin, Blood 2.1 g/dL (3.4-5.0); Albumin/Globulin Ratio 0.6 (0.8-1.8); Bilirubin, Total 0.4 mg/dL (0.1-1.0); Calcium, Blood 8.6 mg/dL (8.5-10.1); Creatinine, Blood 0.89 mg/dL (0.60-1.20); Globulin, Blood 3.4 g/dL (2.2-4.0); Magnesium, Blood 2.2 mg/dL (1.6-2.4); Potassium, Blood 4.8 mmol/L (3.5-5.5); Total Protein, Blood 5.5 g/dL (6.4-8.2)
[2024-05-16 08:02] VITALS: BP 136/87
--- NOTE | 2024-05-16 10:36 | NUR ---
UPDATE: PT TO IMAGING.
[2024-05-16 12:16] VITALS: BP 153/94
--- NOTE | 2024-05-16 12:38 | NUR ---
UPDATE: NG REMOVED, PT TOLERATED WELL. NOW ON CLEAR LIQUID DIET.
[2024-05-16 15:16] VITALS: BP 154/91
--- NOTE | 2024-05-16 17:44 | NUR ---
SHIFT SUMMARY: PT ALERT AND ORIENTED X3, ABLE TO FOLLOW COMMANDS AND MAKE NEEDS KNOWN. FORGETFUL AT TIMES, BED ALARM ON FOR SAFETY. BP AND HR STABLE. AFEBRILE. SPO2 >96% ON ROOM AIR. LUNG SOUNDS CLEAR THROUGHOUT. RESPIRATIONS EVEN AND UNLABORED. ABD MILDLY DISTENDED. BOWEL SOUNDS +. PT WITH LEE DRAIN PLACED IN RLQ, DRAINING SEROSANGUINEOUS FLUID, APPROX 50ML OF OUTPUT THIS SHIFT. SITE OVERALL C/D/I. NG TUBE REMOVED THIS SHIFT, PT TOLERATED WELL. NOW ON CLEAR LIQUID DIET. PT WITH CALDERÓN CATHETER IN PLACE, DRAINING RADHA URINE TO GRAVITY. NO BM. NS GTT @125ML/HR. SPOUSE AT BEDSIDE THIS AFTERNOON UPDATED ON PT PLAN OF CARE. BED IN LOW, CALL LIGHT IN REACH, WILL REPORT TO ONCOMING RN.
[2024-05-16 20:25] VITALS: BP 166/100
[2024-05-17 03:48] VITALS: BP 165/103
[2024-05-17 04:52] LABS: Hematocrit 33.7 % (37.0-53.0); Hemoglobin 11.4 g/dL (13.5-17.5); Mean Corpuscular HGB 33.6 pg (26.0-34.0); Mean Corpuscular HGB Conc 33.8 g/dL (31.5-36.5); Mean Corpuscular Volume 99 fL (80-100); Mean Platelet Volume 9.1 fL (9.1-12.4); Platelet Count 198 K/mm3 (150-400); RDW Standard Deviation 59.1 fL (35.1-46.3); Red Blood Cell Count 3.39 M/mm3 (4.30-5.90); White Blood Cell Count 21.21 K/mm3 (4.00-11.30)
[2024-05-17] MEDS ORDERED: HydrALAZINE HCl 20 MG / ML 1ML Vial IV PRN (05:05)
--- NOTE | 2024-05-17 05:12 | NUR ---
SHIFT SUMMARY THIS RN ASSUMED CARE OF PATIENT AT 1900. PT A&O X4. CIWA PROTOCOL IN PLACE. CIWA 0-2. PT PLACED ON 2L VIA NC AT BEGINNING OF SHIFT D/T O2 SAT OF 85% ON RA. PT NOTED WITH INCREASED SPUTUM. EDUCATED ON DEEP BREATHING AND COUGHING. PT REPORTED NOT LIKING TO DEEP BREATHING BECAUSE IT IS "UNCOMFORTABLE", THIS RN SPOKE TO PT ABOUT PAIN MANAGEMENT. PT DENIED WANTING ANYTHING FOR PAIN. SPOKE TO MD BUCKLEY REGARDING HTN. NO NEW ORDERS AT THIS TIME. NO TELE. HR 100'S. REPOSITIONING Q2HRS. LEE DRESSING INTACT. RLQ CHELSEA DRAINING SEROSANGIONOUS FLUID. CALDERÓN CATHETER PATENT AND DRAINING TO GRAVITY. CLEAR LIQUID DIET. DENIES NAUSEA. BED IN LOWEST POSITION AND CALL LIGHT WITHIN REACH. THIS RN WILL REPORT TO ONCOMING DAYSHIFT RN.
[2024-05-17 05:17] LABS: BAND PERCENT MAN 7 % (0-8); BASOPHILS ABSOLUTE MAN 0.21 K/mm3 (0.00-0.23); BASOPHILS PERCENT MAN 1 % (0-2); EOSINOPHILS ABSOLUTE MAN 0.21 K/mm3 (0.00-0.68); EOSINOPHILS PERCENT MAN 1 % (0-6); LYMPHOCYTES ABSOLUTE MAN 0.21 K/mm3 (0.84-5.20); LYMPHOCYTES PERCENT MAN 1 % (21-46); MONOCYTES ABSOLUTE MAN 0.84 K/mm3 (0.16-1.47); MONOCYTES PERCENT MAN 4 % (4-13); NEUTROPHILS ABSOLUTE MAN 19.72 K/mm3 (1.96-9.15); SEG NEUTROPHILS PERCENT MAN 86 % (41-73); TOTAL CELLS COUNTED 100
[2024-05-17 05:39] LABS: Albumin, Blood 2.1 g/dL (3.4-5.0); Anion Gap 11 mmol/L (3-11); Blood Urea Nitrogen 19 mg/dL (8-24); Bun/Creatinine Ratio 26.4 (12.0-20.0); CO2, Blood 19 mmol/L (21-32); Calcium, Blood 8.8 mg/dL (8.5-10.1); Chloride, Blood 112 mmol/L (98-108); Creatinine, Blood 0.72 mg/dL (0.60-1.20); Glomerular Filtration Rate 102 (60-); Glucose, Blood 97 mg/dL (70-99); Phosphorus, Blood 3.4 mg/dL (2.5-4.9); Potassium, Blood 4.3 mmol/L (3.5-5.5); Sodium, Blood 138 mmol/L (136-145)
[2024-05-17 07:48] VITALS: BP 164/101
[2024-05-17] MEDS ORDERED: Ipratropium/Albuterol SulF 2.5-0.5MG/3 ML Amp INH SCH (08:20)
[2024-05-17] MEDS ORDERED: PredniSONE 20 MG Tab PO SCH (09:00)
[2024-05-17] MEDS ORDERED: HYDROcodone 5-APAP 325 TAB PO PRN (10:55)
[2024-05-17] MEDS ORDERED: Furosemide 10 MG/ML 4ML Vial IV ONE ×2 (11:35→12:00)
[2024-05-17 12:18] VITALS: BP 156/95
[2024-05-17 15:18] VITALS: BP 162/88
--- NOTE | 2024-05-17 16:59 | NUR ---
Shift Summary THE PT IS ALERT AND ORIENTEDX4, BUT IS VERY WITHDRAWN AND IRRITABLE. THE PT APPEARS TO BE UNMOTIVATED. HE WAS ENCOURAGED TO GET OUT OF BED BECAUSE HE WAS COMPLAINING HE IS NOT BREATHING AT HIS BASELINE D/T BEING "STUCK IN THE BED". THIS RN STATED THAT WE COULD GET UP VIA LIFT TO THE RECLINER. THE PT THEN DENIED IT BUT WAS AGREEABLE TO GET OOB 05/18. GOALS WERE WRITTEN ON THE BOARD AND THE PT GOT IRRITTATED AND SAID GOALS WERE "CHILD LIKE". AT BEDSIDE DURING THIS. THE PT HAS BEEN ENCOURAGED MULTIPLE TIMES THIS SHIFT TO USE THE INCENTIVE SPIROMETER AND HE TRIES TO DANIELS THROUGH IT AND DOES NOT USE IT APPROPRAITELY. EDUCATION WAS PROVIDED MULTIPLE TIMES. THE PT IS A SHALLOW BREATHER AND WAS ON 2LNC BUT WAS TITRAITED TO 1L NC AFTER RECEIVING 40MG LASIX OT AND STOPPING IV FLUIDS. BNP >1600 AND CHEST XRAY THIS MORNING ABNORMAL . WHEEZING HAS IMPROVED AFTER DIURETICS. PT HAS A LEE DRESSING C/D/I. HE HAS A LLQ LEE DRAINING AND HE HAS SEROSANGUINEOUS DRAINAGE. PT HAS ADVANCED TO A FULL LIQUID DIET AND TOLERATING WELL. PT IS SURGICAL STATUS AND IS W/O TELE. SEE NOTES FOR UPDATES.
[2024-05-17 20:05] VITALS: BP 143/85
[2024-05-18 04:16] VITALS: BP 151/87
[2024-05-18 05:13] LABS: BASOPHILS ABSOLUTE AUTO 0.04 K/mm3 (0.00-0.23); BASOPHILS PERCENT AUTO 0 % (0-2); EOSINOPHILS ABSOLUTE AUTO 0.01 K/mm3 (0.00-0.68); EOSINOPHILS PERCENT AUTO 0 % (0-6); Hematocrit 33.4 % (37.0-53.0); Hemoglobin 11.6 g/dL (13.5-17.5); IMMATURE GRAN ABSOLUTE AUTO 0.14 K/mm3 (0.00-0.10); IMMATURE GRAN PERCENT AUTO 1 % (0-1); LYMPHOCYTES ABSOLUTE AUTO 0.43 K/mm3 (0.84-5.20); LYMPHOCYTES PERCENT AUTO 4 % (21-46); MONOCYTES ABSOLUTE AUTO 1.47 K/mm3 (0.16-1.47); MONOCYTES PERCENT AUTO 14 % (4-13); Mean Corpuscular HGB 33.3 pg (26.0-34.0); Mean Corpuscular HGB Conc 34.7 g/dL (31.5-36.5); Mean Corpuscular Volume 96 fL (80-100); Mean Platelet Volume 9.5 fL (9.1-12.4); NEUTROPHILS ABSOLUTE AUTO 8.65 K/mm3 (1.96-9.15); NEUTROPHILS PERCENT AUTO 81 % (41-73); Platelet Count 170 K/mm3 (150-400); RDW Coefficient Variation 15.3 % (11.7-14.2); RDW Standard Deviation 54.5 fL (35.1-46.3); Red Blood Cell Count 3.48 M/mm3 (4.30-5.90); White Blood Cell Count 10.74 K/mm3 (4.00-11.30)
[2024-05-18 05:38] LABS: Anion Gap 12 mmol/L (3-11); Blood Urea Nitrogen 15 mg/dL (8-24); Bun/Creatinine Ratio 21.9 (12.0-20.0); CO2, Blood 21 mmol/L (21-32); Calcium, Blood 8.6 mg/dL (8.5-10.1); Chloride, Blood 107 mmol/L (98-108); Creatinine, Blood 0.68 mg/dL (0.60-1.20); Glomerular Filtration Rate 104 (60-); Glucose, Blood 144 mg/dL (70-99); Phosphorus, Blood 3.3 mg/dL (2.5-4.9); Potassium, Blood 3.8 mmol/L (3.5-5.5); Sodium, Blood 136 mmol/L (136-145)
--- NOTE | 2024-05-18 06:19 | NUR ---
SHIFT SUMMARY ASSUMED CARE OF PT AT APPROX 1900. PT A&O4, COOPERATIVE IN CARE BUT WITHDRAWN AND APPEARS UNINTERESTED WITH EDUCATION. VSS AND PT ON RA WHILE AWAKE; 1L NC WHILE SLEEPING. PT PRESENTED WITH A LEE VAC TO MIDLINE ABDOMEN, DRESSING C/D/I ALONG WITH A CHELSEA DRAIN TO THE RUQ DRAINING SEROUS FLUID. PT DENIES ABDOMINAL PAIN, CP/PRESSURE OR SOB. CALDERÓN CATH PRESENT CLEAN, PATENT, BELOW BLADDER AND OFF FLOOR; CATH CARE DONE. CIWA NEGATIVE OVERNIGHT. PT ENCOURAGED TO USE IS BUT PT STATES "I KNOW, I USE IT" AND DID NOT OBSERVE PT USING IS AT ALL OVERNIGHT. PT BED IN LOWEST POSITION AND CALL LIGHT WITHIN REACH.
[2024-05-18 07:43] VITALS: BP 159/98
--- NOTE | 2024-05-18 10:45 | NUR ---
MORNING NOTE THIS RN ASSUMED CARE AT APPROX 0715. PATIENT ALERT AND ORIENTED X4. FLAT AFFECT, COOPERATIVE WITH CARE. COMMUNICATES NEEDS EFFECTIVELY. CIWA <8. VSS. SBP 150s. DENIES CHEST PAIN, PRESSURE. ON ROOM AIR WHILE AWAKE, SATs >90%. UP TO CHAIR WITH 2P MAX ASSIST FWW GB - USES WC AT BASELINE D/T HX OF [employer] HAMMOND. WORKED WITH PHYSICAL THERAPY THIS MORNING. TO BRING IN WC TONIGHT. MIDLINE ABD INCISION WITH LEE DX C/D/I. CHELSEA DRAIN RLQ DRAINING SEROSANGUINOUS FLUID. DENIES PAIN. TOLERATING FULL LIQUID DIET. REPORTS FLATULENCE. MD HERNANDEZ AT BEDSIDE THIS MORNING - REGULAR DIET ORDERED. PLAN TO REMOVE CHELSEA DRAIN PRIOR TO DC. CALDERÓN CATHETER IN PLACE - DRAINING YELLOW URINE TO GRAVITY. CALL LIGHT IN REACH.
[2024-05-18 11:32] VITALS: BP 151/93
[2024-05-18 15:21] VITALS: BP 164/98
--- NOTE | 2024-05-18 17:22 | NUR ---
SHIFT SUMMARY NO ACUTE CHANGES SINCE MORNING NOTE. PATIENT UP IN CHAIR THROUGHOUT DAY. WORKED WITH PHYSICAL AND OCCUPATIONAL THERAPY - WC NOT AT BEDSIDE. UP WITH 2P MAX ASSIST FWW GB. HTN NOTED - SBP 150s-160s. PRN IV HYDRALAZINE ORDER FOR SBP >180, DBP >110. DENIES CHEST PAIN, PRESSURE. REMAINS ON ROOM AIR, SATs >90%. TOLERATING REGULAR DIET. MIDLINE LEE DX C/D/I. CHELSEA DRAIN DRAINING SEROSANGUINOUS FLUID. DENIES PAIN. CALDERNÓ CATHETER DRAINING YELLOW URINE TO GRAVITY. CALL LIGHT IN REACH. AT BEDSIDE. WILL CONTINUE TO MONITOR AND REPORT TO ONCOMING RN.
[2024-05-18 20:07] VITALS: BP 161/93
[2024-05-18] MEDS ORDERED: Lisinopril 10 MG Tab PO SCH (21:00)
[2024-05-19 04:06] VITALS: BP 154/102
--- NOTE | 2024-05-19 05:14 | NUR ---
SHIFT SUMMARY; TRANSFER FROM PCU. SWAPPED BEDS OUT. DENIES NEED FOR PAIN MEDS. CHELSEA DRAINING SERO-SAING.,SMALL AMOUNT. LEE DRAIN CD&I AND OPERATING.ON ABD.
[2024-05-19 07:42] VITALS: BP 168/102
[2024-05-19] MEDS ORDERED: Furosemide 10 MG/ML 4ML Vial IV SCH (08:00)
[2024-05-19] MEDS ORDERED: NS 250 ML IV PRN (09:15)
[2024-05-19 09:38] LABS: BASOPHILS ABSOLUTE AUTO 0.06 K/mm3 (0.00-0.23); BASOPHILS PERCENT AUTO 1 % (0-2); EOSINOPHILS ABSOLUTE AUTO 0.16 K/mm3 (0.00-0.68); EOSINOPHILS PERCENT AUTO 1 % (0-6); Hematocrit 36.8 % (37.0-53.0); Hemoglobin 12.7 g/dL (13.5-17.5); IMMATURE GRAN ABSOLUTE AUTO 0.24 K/mm3 (0.00-0.10); IMMATURE GRAN PERCENT AUTO 2 % (0-1); LYMPHOCYTES ABSOLUTE AUTO 1.08 K/mm3 (0.84-5.20); LYMPHOCYTES PERCENT AUTO 10 % (21-46); MONOCYTES ABSOLUTE AUTO 2.06 K/mm3 (0.16-1.47); MONOCYTES PERCENT AUTO 18 % (4-13); Mean Corpuscular HGB 33.7 pg (26.0-34.0); Mean Corpuscular HGB Conc 34.5 g/dL (31.5-36.5); Mean Corpuscular Volume 98 fL (80-100); Mean Platelet Volume 9.9 fL (9.1-12.4); NEUTROPHILS ABSOLUTE AUTO 7.71 K/mm3 (1.96-9.15); NEUTROPHILS PERCENT AUTO 68 % (41-73); Platelet Count 168 K/mm3 (150-400); RDW Coefficient Variation 14.8 % (11.7-14.2); RDW Standard Deviation 53.2 fL (35.1-46.3); Red Blood Cell Count 3.77 M/mm3 (4.30-5.90); White Blood Cell Count 11.31 K/mm3 (4.00-11.30)
[2024-05-19 10:02] LABS: Albumin, Blood 2.1 g/dL (3.4-5.0); Albumin/Globulin Ratio 0.6 (0.8-1.8); Bilirubin, Total 0.6 mg/dL (0.1-1.0); Bun/Creatinine Ratio 21.2 (12.0-20.0); Calcium, Blood 8.6 mg/dL (8.5-10.1); Creatinine, Blood 0.61 mg/dL (0.60-1.20); Globulin, Blood 3.7 g/dL (2.2-4.0); Potassium, Blood 3.7 mmol/L (3.5-5.5); Total Protein, Blood 5.8 g/dL (6.4-8.2)
[2024-05-19] MEDS ORDERED: Folic Acid 1 MG TAB PO SCH (10:35)
[2024-05-19] MEDS ORDERED: Thiamine HCl 100 MG Tab PO SCH (10:35)
--- NOTE | 2024-05-19 14:27 | NUR ---
CALDERÓN CATHETER WAS REMOVED THIS MORNING. PT HAS BEEN VOIDING SINCE REMOVAL. CONTINUES TO DENY BLADDER PAIN.
[2024-05-19] MEDS ORDERED: Furosemide 10 MG/ML 4ML Vial IV ONE (15:00)
[2024-05-19 16:20] VITALS: BP 136/81
[2024-05-19] MEDS ORDERED: Pantoprazole Sodium 40 MG Tab PO SCH (16:30)
[2024-05-19] MEDS ORDERED: Potassium Chloride 10 Meq Tablet SA PO SCH (17:00)
--- NOTE | 2024-05-19 19:15 | NUR ---
SHIFT SUMMARY: PT IS A/O X 4, WHEELCHAIR BOUND AT BASELINE. PT WAS ABLE TO SELF TX FROM BED TO HIS PERSONAL WHEELCHAIR HIS BROUGHT HIM TODAY. PT HAS HAD NO SYMPTOMS OF ETOH WITHDRAWAL. HE IS PLEASANT AND COOPERATIVE WITH CARE. CALDERÓN CATHETER REMOVED THIS MORNING AND HE HAS BEEN VOIDING WELL ALL DAY. PT IS PASSING GAS. PT HAD CHELSEA DRAIN REMOVED TODAY BY DR. HERNANDEZ. DRESSING TO CHELSEA DRAIN SITE HAD TO BE CHANGED ONE TIME IT BECAME SATURATED WITH SEROSANGUINEOUS FLUID. NO REDNESS OR SWELLING AT SITE. LEE DRAIN CONTINUES TO OPERATE. NO REDNESS OR SWELLING AT LEE SITE. PT SELF REPOSITIONS THROUGHOUT THE DAY. PT ATE DINNER WELL. CONTINUES TO DENY PAIN.
[2024-05-19 19:26] VITALS: BP 157/91
[2024-05-20 02:50] VITALS: BP 141/86
--- NOTE | 2024-05-20 04:40 | NUR ---
SHIFT SUMMARY; PATIENT SLEPT IN SHORT INTERVALS, SPENT SOME OF THE NIGHT IN HIS W/C.DECLINED ANY PRN MEDS. CHANGED THE CHELSEA SITE DRESSING ONCE. SEROUS DRAINAGE NOTED. REMAINS IN CONTACT ISOLATION FOR HISTORY OF MRSA.
[2024-05-20 07:36] VITALS: BP 148/76
[2024-05-20] MEDS ORDERED: Lisinopril 20 MG Tab PO SCH (09:00)
[2024-05-20 10:46] LABS: BASOPHILS ABSOLUTE AUTO 0.05 K/mm3 (0.00-0.23); BASOPHILS PERCENT AUTO 0 % (0-2); EOSINOPHILS ABSOLUTE AUTO 0.03 K/mm3 (0.00-0.68); EOSINOPHILS PERCENT AUTO 0 % (0-6); Hematocrit 37.5 % (37.0-53.0); Hemoglobin 13.5 g/dL (13.5-17.5); IMMATURE GRAN ABSOLUTE AUTO 0.26 K/mm3 (0.00-0.10); IMMATURE GRAN PERCENT AUTO 2 % (0-1); LYMPHOCYTES ABSOLUTE AUTO 0.86 K/mm3 (0.84-5.20); LYMPHOCYTES PERCENT AUTO 6 % (21-46); MONOCYTES ABSOLUTE AUTO 1.54 K/mm3 (0.16-1.47); MONOCYTES PERCENT AUTO 10 % (4-13); Mean Corpuscular HGB 33.8 pg (26.0-34.0); Mean Corpuscular Volume 94 fL (80-100); Mean Platelet Volume 9.6 fL (9.1-12.4); NEUTROPHILS ABSOLUTE AUTO 12.45 K/mm3 (1.96-9.15); NEUTROPHILS PERCENT AUTO 82 % (41-73); Platelet Count 189 K/mm3 (150-400); RDW Coefficient Variation 14.4 % (11.7-14.2); RDW Standard Deviation 50.3 fL (35.1-46.3); White Blood Cell Count 15.19 K/mm3 (4.00-11.30)
[2024-05-20 11:16] LABS: Albumin, Blood 2.4 g/dL (3.4-5.0); Albumin/Globulin Ratio 0.6 (0.8-1.8); Bilirubin, Total 0.7 mg/dL (0.1-1.0); Bun/Creatinine Ratio 18.8 (12.0-20.0); Calcium, Blood 8.9 mg/dL (8.5-10.1); Creatinine, Blood 0.64 mg/dL (0.60-1.20); Globulin, Blood 3.9 g/dL (2.2-4.0); Potassium, Blood 3.6 mmol/L (3.5-5.5); Total Protein, Blood 6.3 g/dL (6.4-8.2)
[2024-05-20] MEDS ORDERED: FURO20 PO (13:51)
[2024-05-20] MEDS ORDERED: ATOR40TA PO (13:51)
[2024-05-20] MEDS ORDERED: LISI20 PO (13:52)
[2024-05-20] MEDS ORDERED: POTCHL20ER PO (13:52)
[2024-05-20] MEDS ORDERED: PANT40 PO (13:52)
[2024-05-20] MEDS ORDERED: PROBIOTIC1 EA15 PO (13:52)
--- NOTE | 2024-05-20 15:21 | NUR ---
DISCHARGE SUMMARY: PT DISCHARGED HOME WITH HOME HEALTH SERVICES. PT HERE TO PICK PT UP. EDUCATED WITH DEMONSTRATION ON HOW TO COMPLETE DRESSING CHANGES TO ABD. DISCUSSED KEEPING CLEAN AND DRY AFTER SHOWERING. NO BATHS. EDUCATED PT AND ON NEW MEDICATIONS. PT/SP V/U. ASSISTED PT WITH PACKING UP BELONGINGS. PT DRESSED SELF AND TX TO HIS WHEELCHAIR BY HIMSELF. PT TOOK PT AND BELONGINGS TO PO VIA WHEELCHAIR.
[2024-05-21] MEDS ORDERED: Furosemide 40 MG Tab PO SCH (09:00)
[2024-05-21] MEDS ORDERED: Potassium Chloride 10 Meq Tablet SA PO SCH (09:00)
[2024-05-21] MEDS ORDERED: Atorvastatin 40 MG Tab PO SCH (09:00)
== END 2024-05-20 14:24 | disposition home health service (06) | DRG 326 ==
LOC: ER 02:01 → ERHOLD 08:54 → PCU 08:54 → MEDS 05-18 19:54
PROVIDERS: Emergency Medicine; Family Medicine; Surgery; ADMIT Internal Medicine
PROC: 0DQ70ZZ Repair Stomach, Pylorus, Open Approach (ICD-10-PCS; principal; 2024-05-14 12:30)
DX: K25.5 Chronic or unspecified gastric ulcer with perforation (principal); I50.33 Acute on chronic diastolic (congestive) heart failure; K65.2 Spontaneous bacterial peritonitis; J96.01 Acute respiratory failure with hypoxia; E87.1 Hypo-osmolality and hyponatremia; E87.21 Acute metabolic acidosis; J44.1 Chronic obstructive pulmonary disease with (acute) exacerbation; F17.210 Nicotine dependence, cigarettes, uncomplicated; F10.20 Alcohol dependence, uncomplicated; K76.9 Liver disease, unspecified; K70.31 Alcoholic cirrhosis of liver with ascites; I11.0 Hypertensive heart disease with heart failure; E78.5 Hyperlipidemia, unspecified; Z89.512 Acquired absence of left leg below knee; Z88.0 Allergy status to penicillin; Z79.899 Other long term (current) drug therapy; Z79.891 Long term (current) use of opiate analgesic; Z79.2 Long term (current) use of antibiotics
CPT/HCPCS: 36415; 71045; 74177; 74240; 76705; 80053; 80069; 81001; 82947; 83605; 83690; 83735; 83880; 83930; 83935; 84100; 84300; 85025; 85610; 85730; 86850; 86900; 86901; 87040; 87086; 93005; 93010; 94640; 94664; 94760; 94762; 96361; 96365-59; 96375; 97110; 97161; 97165; 99285-25; A9270; J0612; J0696; J1100; J1171; J1650; J1815; J1885; J1940; J2185; J2250; J2270; J2405; J2470; J2704; J3010; J3411; J7030; J7050; J7120; J7512; Q9963; Q9967

== ENCOUNTER 2024-07-10 07:34 | Day surgery (SDC) | payer OTHER ==
[~2024-07-10] VITALS: Ht 175.3 cm; Wt 66.2 kg
[~2024-07-10 07:34] MED LIST changes: +ATOR40TA PO; +FURO20 PO; +LISI20 PO; +Lactated Ringer's 1,000 ML IV SCH; +PANT40 PO; +POTCHL20ER PO; +PROBIOTIC1 EA15 PO
--- NOTE | 2024-07-10 08:35 | NUR ---
History, Chart, Medications and Allergies reviewed before start of procedure. Lungs clear T/O to Auscultation. Patient confirms NPO status and agrees with scheduled surgery. Pre-Op teaching done. Pt verbalizes understanding. Patient States Post-Procedure ride home has been arranged.
--- NOTE | 2024-07-10 08:52 | NUR ---
07/10/24 0852 Irene Mayfield History, Chart, Medications and Allergies reviewed before start of procedure. ANESTHESIA PROVIDED BY DR ARMANDO SEE RECORDS
[2024-07-10] MEDS ORDERED: propofoL 40 ML IV ONE (08:55)
[2024-07-10 09:26] VITALS: BP 128/74
--- NOTE | 2024-07-10 09:48 | NUR ---
PT A&OX4, VSS, ON RA, DENIES PAIN/NAUSEA. PT'S BROUGHT BACK TO BEDSIDE & ASSISTED PT IN GETTING DRESSED. ALL BELONGINGS RETURNED TO PT. D/C INSTRUCTIONS GIVEN TO PT & PT'S , UNDERSTANDING VERBALIZED. PT STATES READINESS TO GO HOME. PT LEAVING DAY SURGERY IN PERSONAL WC, PUSHED BY PT'S . PT HAS ALL BELONGINGS, INCLUDING D/C PACKET. PT WHEELED TO PRIVATE VEHICLE TO GO HOME. NO VISIBLE SIGNS OF DISTRESS NOTED.
== END 2024-07-10 23:00 | disposition home or self-care (01) ==
LOC: ORSCMMR 07:34
PROVIDERS: Surgery
PROC: 0DB78ZX Excision of Stomach, Pylorus, Via Natural or Artificial Opening Endoscopic, Diagnostic (ICD-10-PCS; principal; 2024-07-10 09:15)
DX: K27.5 Chronic or unspecified peptic ulcer, site unspecified, with perforation (principal); K29.70 Gastritis, unspecified, without bleeding; I50.9 Heart failure, unspecified; I25.2 Old myocardial infarction; I63.9 Cerebral infarction, unspecified; Z79.899 Other long term (current) drug therapy
CPT/HCPCS: 88305; 88342; 93005; 93010; J2704; J7120